=== PATIENT | female | born 1945 | race Caucasian/White ===

== ENCOUNTER 2018-07-03 18:11 | Emergency (ER) | payer MEDICARE, MEDICAID ==
--- NOTE | 2018-07-03 18:21 | UC ---
Shortness of Breath HPI - HPI Summary HPI Summary: Patient is 73-year-old female with multiple medical problems presents here with the acute onset of shortness of breath about one hour ago. She has a history of congestive heart failure coronary artery disease DVTs pneumonia. She was recently hospitalized at [facility] for congestive heart failure .her ejection fraction is reported to be about 20%. - History of Current Complaint Stated Complaint: SHORT OF BREATHE Hx Obtained From: Patient Onset/Duration: Sudden Onset, Lasting Minutes Timing: Constant Current Severity: Moderate Dyspnea At: Rest Aggrevating Factors: Nothing Associated Signs & Symptoms: Positive: Cough (Nonproductive) Related History: Obesity - Allergy/Home Medications Allergies/Adverse Reactions: Allergies Allergy/AdvReac Type Severity Reaction Status Date / Time Adhesive Tape Allergy Unknown Unverified 01/22/14 14:[address] dye Allergy Unknown Uncoded 01/22/14 14:13 Reaction Details PMH/Surg Hx/FS Hx/Imm Hx Previously Healthy: Yes Endocrine History: Diabetes, Dyslipidemia Cardiovascular History: Cardiac Disease, Hypertension, Congestive Heart Failure , Deep Vein Thrombosis - Surgical History Surgery Procedure, Year, and Place: Cholecystectomy, Complete Hysterectomy - Social History Substance Use Type: None Review of Systems All Other Systems Reviewed And Are Negative: Yes Constitutional: Positive: Fatigue Skin: Positive: Negative Eyes: Positive: Negative ENT: Positive: Negative Respiratory: Positive: Shortness Of Breath Cardiovascular: Positive: Negative Gastrointestinal: Positive: Negative Genitourinary: Positive: Negative Motor: Positive: Negative Neurovascular: Positive: Negative Musculoskeletal: Positive: Negative Neurological: Positive: Negative Psychological: Positive: Negative Physical Exam Triage Information Reviewed: Yes Appearance: Well-Appearing, No Pain Distress, Obese Vital Signs Reviewed: Yes Eyes: Positive: Conjunctiva Clear ENT: Positive: Hearing grossly normal. Negative: Nasal congestion, Nasal drainage, Trismus, Muffled voice, Hoarse voice Neck: Positive: Supple, Nontender, No Lymphadenopathy Respiratory: Positive: Crackles - both bases, Other: - increased work of breathing Cardiovascular: Positive: RRR, No Murmur, Tachycardia Musculoskeletal: Positive: Edema @ - bilat LE (chronic) Neurological: Positive: Alert Diagnostics - EKG Cardiac Rate: Tachycardia Cardiac Rhythm: Sinus: Normal Ectopy: None ST Segment: Non-Specific - [address] depression V6 Summary of EKG Findings: sinus tach, ?old AWMI Shortness of Breath Dx - Course Course Of Treatment: d/w Kathe Briones ([facility]). to ER via EMS. suspect CHF - Differential Dx/Diagnosis Provider Diagnosis: Dyspnea Discharge - Sign-Out/Discharge Documenting (check all that apply): Patient Departure All imaging exams completed and their final reports reviewed: No Studies - Discharge Plan Condition: Guarded Disposition: TRANS HIGHER LVL OF CARE FAC Referrals: Brenda Garcia MD [Primary Care Provider] - - Billing Disposition and Condition Condition: GUARDED Disposition: Trans Higher Lvl of Care Fac
[2018-07-03 18:46] VITALS: BP 86/70
== END 2018-07-03 18:55 | disposition short-term general hospital (02) ==
LOC: UCCORT 18:11
DX: R06.00 Dyspnea, unspecified (principal); I50.9 Heart failure, unspecified; Z91.041 Radiographic dye allergy status; E11.9 Type 2 diabetes mellitus without complications; I10 Essential (primary) hypertension; Z86.718 Personal history of other venous thrombosis and embolism
CPT/HCPCS: 93005; 99214; G0463